=== PATIENT | female | born 1980 | race African-American/Black ===

== ENCOUNTER → 2017-05-11 | Outpatient (CLI) | payer OTHER ==
[2014-02-01 14:00] VITALS: BP 168/84
[~2017-05-11] MED LIST: FLUT16SP2 NS; GLIP10TA13 PO; LOVA10TA PO
--- NOTE | 2017-05-11 15:13 | KCIC ---
PELVIS W/TV Clinical Indication: Heavy vaginal bleeding, cramping, pelvic pain. Comparison: None. TECHNIQUE: Real-time ultrasound imaging of the pelvis using transabdominal and transvaginal window is performed. Findings: Ovaries are not seen transabdominally perhaps due to overlying bowel gas. Anteverted uterus. Uterus measures 7 x 3.3 x 4.5 cm. No focal abnormality. The endometrial stripe is normal measuring 4 mm. No cul-de-sac free fluid. No adnexal mass is seen. Normal blood flow in the ovaries. The right ovary measures 4.1 x 3 x 3.3 cm. The left ovary measures 4.5 x 2.5 x 5.4 cm. IMPRESSION: No acute pelvic abnormality. Electronically signed by: Goran Gurrola MD (05/11/2017 3:10 PM) [id number]
== END | disposition home or self-care (01) ==
LOC: KCIC US 14:11
PROVIDERS: ATTEND Obstetrics & Gynecology
DX: N93.9 Abnormal uterine and vaginal bleeding, unspecified (principal)
CPT/HCPCS: 76830; 76856

== ENCOUNTER 2019-01-29 12:36 | Emergency (ER) | payer SELFPAY ==
[~2019-01-29] VITALS: Ht 160 cm; Wt 131.5 kg
[2019-01-29 14:01] VITALS: BP 151/103
[2019-01-29] MEDS ORDERED: ACETAMINOPHEN 500 MG TABLET PO ONE (15:00)
--- NOTE | 2019-01-29 15:14 | RAD ---
EXAM: PA and Lateral Views of the Chest DATE: 01/29/2019 2:33 PM INDICATION: NOT FEELING WELL FOR 2 WEEKS, COUGH AND FEVER COMPARISON: No Prior FINDINGS: The heart is not enlarged. Mediastinal and hilar contours are normal. No focal parenchymal airspace opacity. No pleural effusion or pneumothorax. IMPRESSION: 1. No radiographic evidence for acute cardiopulmonary process. Electronically signed by: Agus James MD (01/29/2019 3:11 PM) [facility]
--- NOTE | 2019-01-29 15:23 | PHYS DOC ---
Past Medical History Past Medical History: Diabetes-Type II, High Cholesterol Additional Past Medical Histor: seasonal allergies Past Surgical History: No Surgical History Alcohol Use: Occasionally Drug Use: None Adult General Chief Complaint Chief Complaint: COUGH HPI HPI Patient is a 38 year old Female who presents with body aches, cough with yellow mucus production, ear pain bilaterally for the last 2 weeks. Patient is running a fever 100.8 today. Patient states she is anemic taking DayQuil and NyQuil. Patient states she has not taken any medications today. Review of Systems Review of Systems Constitutional: fever or chills [] Eyes: Denies change in visual acuity, redness, or eye pain [] HENT: nasal congestion or sore throat, ear pain [] Respiratory: cough or denies shortness of breath [] Cardiovascular: Only with cough Musculoskeletal: Generalized body aches. Denies back pain or joint pain [] All other systems were reviewed and found to be within normal limits, except as documented in this note. Current Medications Current Medications Current Medications Medications (Trade) Dose Ordered Sig/Matthew Start Time Stop Time Status Last Admin Dose Admin Acetaminophen (Tylenol) 1,000 mg 1X ONCE 01/29/19 15:00 01/29/19 15:01 DC 01/29/19 14:53 1,000 MG Allergies Allergies Allergies Coded Allergies Type Severity Reaction Last Updated Verified No Known Drug Allergies 10/08/13 No Physical Exam Physical Exam Constitutional: Well developed, well nourished, no acute distress, non-toxic appearance. [] HENT: Normocephalic, atraumatic, bilateral external ears normal, oropharynx wallace st, no oral exudates, nose normal. Bilateral tympanic membranes foggy in color. Throat reddened without exudates or swelling.[] Eyes: PERRLA, EOMI, conjunctiva normal, no discharge. [] Neck: Normal range of motion, no tenderness, supple, no stridor. [] Cardiovascular:Heart rate regular rhythm, no murmur [] Lungs & Thorax: Bilateral breath sounds clear to auscultation [] Skin: Warm, dry, no erythema, no rash. [] Neurologic: Alert and oriented X 3, normal motor function, normal sensory function, no focal deficits noted. [] Psychologic: Affect normal, judgement normal, mood normal. [] Current Patient Data Vital Signs Vital Signs Date Time Temp Pulse Resp B/P (MAP) Pulse Ox O2 Delivery O2 Flow Rate FiO2 01/29/19 14:01 100.8 98 20 151/103 (119) 100 Room Air 100.8 Lab Values Laboratory Tests Test 01/29/19 14:50 Influenza Type A Antigen Negative (NEGATIVE) Influenza Type B Antigen Negative (NEGATIVE) EKG EKG [] Radiology/Procedures Radiology/Procedures [] Impressions: [facility] [address] [place] [address] IMAGING REPORT Signed PATIENT: ROMEO DAY I ACCOUNT: [id number] : 1980 LOCATION: ER AGE: 38 SEX: F EXAM STATUS: REG ER ORD. PHYSICIAN: FERNANDEZ MCDONOUGH APRN REASON: NOT FEELING WELL FOR 2 WEEKS, COUGH AND FEVER PROCEDURE: CHEST PA & LATERAL EXAM: PA and Lateral Views of the Chest DATE: 01/29/2019 2:33 PM INDICATION: NOT FEELING WELL FOR 2 WEEKS, COUGH AND FEVER COMPARISON: No Prior FINDINGS: The heart is not enlarged. Mediastinal and hilar contours are normal. No focal parenchymal airspace opacity. No pleural effusion or pneumothorax. IMPRESSION: 1. No radiographic evidence for acute cardiopulmonary process. Electronically signed by: Agus Murdock MD (01/29/2019 3:11 PM) [facility] DICTATED and SIGNED BY: AGUS MURDOCK MD DATE: 01/29/19 1511 Course & Med Decision Making Course & Med Decision Making Patient is a 38 year old Female who presents with body aches, cough with yellow mucus production, ear pain bilaterally for the last 2 weeks. Patient is running a fever 100.8 today. Patient states she is anemic taking DayQuil and NyQuil. Patient states she has not taken any medications today. Patient rates her overall pain a 9 out of 10. Patient is given Tylenol in the ED. Strep is negative. Chest x-ray shows no acute findings. Bilateral tympanic membranes are boggy in color. Throat is reddened but not swollen there are no exudates. Lungs are clear to auscultation in all lobes. Patient speaks in full clear senses. Skin pink warm and dry. PERRLA. Patient denies shortness of breath, chest pain, nausea, vomiting, abdominal pain, dizziness, numbness or headache. Patient follow-up with primary care provider. Patient is given a Medrol Dosepak and azithromycin. Patient to take ibuprofen or Tylenol for pain. Dragon Disclaimer Dragon Disclaimer This electronic medical record was generated, in whole or in part, using a voice recognition dictation system. Departure Departure Impression: Primary Impression: Sore throat Additional Impressions: Generalized body aches Cough Disposition: HOME, SELF-CARE Condition: STABLE Referrals: TORIE MELCHOR (PCP) Patient Instructions: Cough, Adult, Sore Throat Additional Instructions: Follow-up her primary care provider. Continue taking [id number] cold medications. Patient here taking some Tylenol or ibuprofen every 4-6 hours. Drink plenty of fluids. Scripts Methylprednisolone (MEDROL) 4 Mg Tab.ds.pk 1 PKG PO UD, #1 PKG Prov: FERNANDEZ MCDONOUGH APRN 01/29/19 Azithromycin (AZITHROMYCIN TABLET) 250 Mg Tablet 1 PKG PO UD, #6 TAB Prov: FERNANDEZ MCDONOUGH APRN 01/29/19 Problem Qualifiers FERNANDEZ MCDONOUGH APRN Jan 29, 2019 15:23
[2019-01-29 15:38] LABS: INFLUENZA A PATIENT NEGATIVE (NEGATIVE); INFLUENZA B PATIENT NEGATIVE (NEGATIVE)
[2019-01-29] MEDS ORDERED: AZIT250T6 PO (15:56)
[2019-01-29] MEDS ORDERED: METH4TAB2 PO (15:56)
== END 2019-01-29 16:19 | disposition home or self-care (01) ==
LOC: ER 12:36
DX: J02.9 Acute pharyngitis, unspecified (principal); M79.18 Myalgia, other site; R05 Cough; E11.9 Type 2 diabetes mellitus without complications; E78.00 Pure hypercholesterolemia, unspecified
CPT/HCPCS: 71046; 87070; 87804; 87880; 99285-25